=== PATIENT | female | born 1995 | race Caucasian/White ===

== ENCOUNTER 2018-03-14 20:31 | Emergency (ER) | payer MEDICAID, OTHER ==
[~2018-03-14] VITALS: Ht 167.6 cm; Wt 55.0 kg
[~2018-03-14 20:31] MED LIST: Z.0.BCPILL PO
[2018-03-14 20:42] VITALS: BP 167/89; PULSE 110; RESP 12; TEMP 98.6; O2SAT 98
--- NOTE | 2018-03-14 20:54 | PD ---
HPI Chief Complaint: Suicide Ideation/Attempt Time Seen by Provider: 20:51 Travel History International Travel<30 days: No Contact w/Intl Traveler<30days: No Traveled to known affect area: No History of Present Illness HPI This is a 22-year-old female who presents under a Vasques act initiated by [place] [employer]. According to the administrative services officer patient recently had medication changes of unknown specificity. Since then she has been having emotional outbursts and has been having complaints of depression and occasional suicidal thoughts. Onset and duration unknown. Symptoms are moderate, aggravated by medication changes. Reportedly she has a history of autism. She says that she follows with a psychiatrist but she does not recall the name of the psychiatrist. In regards to medical complaints, she says that she is currently menstruating and she feels anxious and scared. She is otherwise without complaint at this time. PFSH Past Medical History ADHD: Yes Diminished Hearing: No Neurologic: Yes (MENTALLY DELAYED) Immunizations Current: Yes ?: Not Past Surgical History Hysterectomy: No Tympanostomy Tube: Yes Social History Alcohol Use: No Tobacco Use: No Substance Use: No Allergies-Medications (Allergen,Severity, Reaction): Coded Allergies: No Known Allergies (Unverified Adverse Reaction, Unknown, 03/15/18) Reported Meds & Prescriptions Reported Meds & Active Scripts Active Reported Zoloft (Sertraline HCl) 25 Mg Tab 25 Mg PO DAILY Risperdal (Risperidone) 0.5 Mg Tab 0.5 Mg PO HS Risperdal (Risperidone) 0.25 Mg Tab 0.25 Mg PO AM, 1 PM Guanfacine (Guanfacine HCl) 1 Mg Tab 1 Mg PO DAILY Do not crush, chew or divide tablet. Take with a meal. Control Pills (Miscellaneous Medication) Tab 1 Tab PO DAILY Review of Systems Except as stated in HPI: all other systems reviewed are Neg Physical Exam Narrative GENERAL: Well-developed well-nourished female in no acute distress SKIN: Warm and dry. HEAD: Atraumatic. Normocephalic. EYES: Pupils equal and round. No scleral icterus. No injection or drainage. ENT: No nasal bleeding or discharge. Mucous membranes pink and moist. NECK: Trachea midline. No JVD. CARDIOVASCULAR: Regular rate and rhythm. No murmur appreciated. RESPIRATORY: No accessory muscle use. Clear to auscultation. Breath sounds equal bilaterally. GASTROINTESTINAL: Abdomen soft, non-tender, nondistended. Hepatic and splenic margins not palpable. MUSCULOSKELETAL: No obvious deformities. NEUROLOGICAL: Awake and alert. No obvious cranial nerve deficits. Motor grossly within normal limits. Normal speech. PSYCHIATRIC: Anxious, tearful. Data Data Last Documented VS Vital Signs Date Time Temp Pulse Resp B/P (MAP) Pulse Ox O2 Delivery O2 Flow Rate FiO2 03/15/18 19:54 03/15/18 18:05 99 20 96 Room Air 03/14/18 20:42 98.6 Orders Orders Complete Blood Count With Diff (03/14/18 20:48) Comprehensive Metabolic Panel (03/14/18 20:48) Ed Urine Pregnancytest Poc (03/14/18 20:48) Psych Screen (03/14/18 20:48) Drug Screen, Random Urine (03/14/18 20:48) Thyroid Stimulating Hormone (03/14/18 20:48) Thyroid Stimulating Hormone (03/14/18 20:48) Risperidone (Risperdal) (03/14/18 22:30) Diphenhydramine (Benadryl) (03/14/18 22:30) Diet Regular Basic (03/15/18 Breakfast) Diet Regular Basic (03/15/18 Lunch) Diet Regular Basic (03/15/18 Dinner) Labs Laboratory Tests Test 03/14/18 21:00 03/14/18 21:38 White Blood Count 10.2 TH/MM3 Red Blood Count 4.70 MIL/MM3 Hemoglobin 13.4 GM/DL Hematocrit 39.9 % Mean Corpuscular Volume 84.9 FL Mean Corpuscular Hemoglobin 28.6 PG Mean Corpuscular Hemoglobin Concent 33.6 % Red Cell Distribution Width 13.2 % Platelet Count 228 TH/MM3 Mean Platelet Volume 9.6 FL Neutrophils (%) (Auto) 58.5 % Lymphocytes (%) (Auto) 30.4 % Monocytes (%) (Auto) 8.4 % Eosinophils (%) (Auto) 2.1 % Basophils (%) (Auto) 0.6 % Neutrophils # (Auto) 6.0 TH/MM3 Lymphocytes # (Auto) 3.1 TH/MM3 Monocytes # (Auto) 0.9 TH/MM3 Eosinophils # (Auto) 0.2 TH/MM3 Basophils # (Auto) 0.1 TH/MM3 CBC Comment DIFF FINAL Differential Comment Blood Urea Nitrogen 11 MG/DL Creatinine 0.86 MG/DL Random Glucose 96 MG/DL Total Protein 7.4 GM/DL Albumin 3.7 GM/DL Calcium Level 9.1 MG/DL Alkaline Phosphatase 60 U/L Aspartate Amino Transf (AST/SGOT) 18 U/L Alanine Aminotransferase (ALT/SGPT) 22 U/L Total Bilirubin 0.3 MG/DL Sodium Level 139 MEQ/L Potassium Level 3.5 MEQ/L Chloride Level 106 MEQ/L Carbon Dioxide Level 21.2 MEQ/L Anion Gap 12 MEQ/L Estimat Glomerular Filtration Rate 83 ML/MIN Thyroid Stimulating Hormone 3rd Gen 1.720 uIU/ML Urine Opiates Screen NEG Urine Barbiturates Screen NEG Urine Amphetamines Screen NEG Urine Benzodiazepines Screen NEG Urine Cocaine Screen NEG Urine Cannabinoids Screen NEG MDM Medical Decision Making Medical Screen Exam Complete: Yes Emergency Medical Condition: Yes Medical Record Reviewed: Yes Differential Diagnosis Adverse medication effect, acute psychosis, adjustment reaction, major depressive disorder, intermittent explosive disorder, autism Narrative Course Mental health screening discussed with the patient. Psychiatric screen ordered. Medically cleared. 2000: This patient has been cleared by psychiatry. She has no medical issues that would warrant further hospitalization. She is stable for discharge. Diagnosis Primary Impression: Medical clearance for psychiatric admission Dakotah Melendez Mar 14, 2018 20:54
[2018-03-14 21:47] LABS: BASOPHIL # 0.1 TH/MM3 (0-0.2); BASOPHIL % 0.6 % (0.0-2.0); EOSINOPHIL # 0.2 TH/MM3 (0-0.4); EOSINOPHIL % 2.1 % (0.0-4.0); HEMATOCRIT 39.9 % (35.0-46.0); HEMOGLOBIN 13.4 GM/DL (11.6-15.3); LYMPH % 30.4 % (9.0-44.0); LYMPHOCYTE # 3.1 TH/MM3 (1.0-4.8); MEAN CELL VOLUME 84.9 FL (80.0-100.0); MEAN CORPUSCULAR HEMOGLOBIN 28.6 PG (27.0-34.0); MEAN CORPUSCULAR HGB CONC 33.6 % (32.0-36.0); MEAN PLATELET VOLUME 9.6 FL (7.0-11.0); MONO % 8.4 % (0.0-8.0); MONOCYTE # 0.9 TH/MM3 (0-0.9); NEUT % 58.5 % (16.0-70.0); PLATELET COUNT 228 TH/MM3 (150-450); RED CELL DISTRIBUTION WIDTH 13.2 % (11.6-17.2); WHITE BLOOD COUNT 10.2 TH/MM3 (4.0-11.0)
[2018-03-14 22:19] LABS: ALBUMIN 3.7 GM/DL (3.4-5.0); AST (GOT) 18 U/L (15-37); BICARBONATE 21.2 MEQ/L (21.0-32.0); BLOOD UREA NITROGEN 11 MG/DL (7-18); CALCIUM 9.1 MG/DL (8.5-10.1); CHLORIDE 106 MEQ/L (98-107); CREATININE 0.86 MG/DL (0.50-1.00); GLOMERULAR FILTRATION RATE 83 ML/MIN (>89); GLUCOSE,RANDOM 96 MG/DL (74-106); SODIUM (NA) 139 MEQ/L (136-145)
[2018-03-14 22:30] LABS: ALKALINE PHOSPHATASE 60 U/L (45-117); ALT (GPT) 22 U/L (10-53); TOTAL BILIRUBIN ADULT 0.3 MG/DL (0.2-1.0); TOTAL PROTEIN 7.4 GM/DL (6.4-8.2)
[2018-03-14] MEDS ORDERED: risperiDONE 0.5 MG TAB PO ONE (22:30)
[2018-03-14] MEDS ORDERED: diphenhydrAMINE HCL 50 MG CAP PO ONE (22:30)
[2018-03-15 06:03] VITALS: BP 98/53; PULSE 77; RESP 16; O2SAT 100
[2018-03-15] MEDS ORDERED: GUAN1TAB PO (07:50)
[2018-03-15] MEDS ORDERED: RISP0.5T25 PO (07:50)
[2018-03-15] MEDS ORDERED: RISP.25 PO (07:50)
[2018-03-15] MEDS ORDERED: ZOLO25TA PO (07:50)
[2018-03-15 13:10] VITALS: BP 125/83; PULSE 97; RESP 18; O2SAT 98
[2018-03-15 18:05] VITALS: BP 149/69; PULSE 99; RESP 20; O2SAT 96
--- NOTE | 2018-03-15 19:15 | PD ---
History of Present Illness Chief Complaint: Suicide Ideation/Attempt Time Seen by Provider: 19:00 Travel History International Travel<30 Days: No Contact w/Intl Traveler<30days: No Known affected area: No Legal Status Legal Status: Vasques Act Vasques Act Signed By: Rosa Castro Vasques Act Comment: 2017 @ 1950 History of Present Illness: History of Present Illness HPI This is a 22-year-old, single, unemployed female, living with her parents with diagnosis of intellectual disability, autism spectrum disorder, and major depressive disorder recurrent, who presents under a Vasques act initiated by [place] [employer]. According to the police affidavit patient recently had medication changes of unknown specificity. Since then she has been having emotional outbursts and has been having complaints of depression and occasional suicidal thoughts. Patient is not reported to have made any attempts at harming herself. Electronic medical record is reviewed. No previous contact with [facility] psychiatry Department. Current toxicology is negative for any substances of abuse. Patient was monitored here in J pod and presented no behavioral concerns and no suicidality. She was rather isolative to her room. Patient is seen. She is alert and oriented. She is calm, cooperative. She does express feeling anxious over being here. She states that time she has a hard time with feeling angry. She denies any suicidal or homicidal ideation, intent or plan. There is no evidence of any psychosis, no tom or hypomania. The patient is medication compliant. Telephone call to mother at [phone]. I have discussed with the mother the patient's behavior during the daytime here in J pod. I have also shared my concern regarding admitting her to an inpatient locked psychiatric unit where she may not benefit from such. The mother tells me that last the patient's Zoloft was decreased and she was started on risperidone 3 times a day. It was after the initiation of that medication that she began to have more outbursts. The patient has an appointment with her psychiatrist on . I have advised her to decrease the amount of risperidone that she takes at nighttime and to inform her outpatient psychiatrist. The mom agrees to pick her up from [facility] Past Medical History ADHD: Yes Diminished Hearing: No Neurologic: Yes (MENTALLY DELAYED) Immunizations Current: Yes ?: Not Past Surgical History Hysterectomy: No Tympanostomy Tube: Yes Psychiatric History Psychiatric History Hx Psychiatric Treatment: ADHD, DEVELOPMENTALY DELAYED, ASD patient is followed by Dr. Hewitt. No history of suicide attempt. No history of self-injurious behavior. Has an appointment next . History of Inpatient Treatment: No Guns or firearms in home: No Social History Patient is single, never , completed high school. Currently unemployed and lives with parents. Hx Alcohol Use: No Hx Tobacco Use: No Hx Substance Use: No Hx of Substance Use Treatment: No Family Psychiatric History Negative Allergies-Medications (Allergen,Severity, Reaction): Coded Allergies: No Known Allergies (Unverified Adverse Reaction, Unknown, 03/15/18) Reported Meds & Prescriptions Reported Meds & Active Scripts Active Reported Zoloft (Sertraline HCl) 25 Mg Tab 25 Mg PO DAILY Risperdal (Risperidone) 0.5 Mg Tab 0.5 Mg PO HS Risperdal (Risperidone) 0.25 Mg Tab 0.25 Mg PO AM, 1 PM Guanfacine (Guanfacine HCl) 1 Mg Tab 1 Mg PO DAILY Do not crush, chew or divide tablet. Take with a meal. Control Pills (Miscellaneous Medication) Tab 1 Tab PO DAILY Review of Systems Psychiatric: COMPLAINS OF: Anxiety Except as stated in HPI: all other systems reviewed are Neg Mental Status Examination Appearance: Disheveled Consciousness: Alert Orientation: x4 Motor Activity: Normal gait Speech: Slow, Other (Low tone) Language: Adequate Fund of Knowledge: Poor Attention and Concentration: Adequate Memory: Unremarkable (Not formally tested) Mood: Anxious Affect: Appropriate Thought Process & Associations: Intact, Logical Thought Content: Appropriate Hallucination Type: None Delusion Type: None Suicidal Ideation: No Suicidal Plan: No Suicidal Intention: No Homicidal Ideation: No Homicidal Plan: No Homicidal Intention: No Insight: Fair Judgment: Impulsive [facility] Medical Decision Making Medical Record Reviewed: Yes Assessment/Plan This is a 22-year-old, single, unemployed female, living with her parents with diagnosis of intellectual disability, autism spectrum disorder, and major depressive disorder recurrent, who presents under a Vasques act initiated by [place] [employer]. According to the police affidavit patient recently had medication changes of unknown specificity. Since then she has been having emotional outbursts and has been having complaints of depression and occasional suicidal thoughts. Patient is not reported to have made any attempts at harming herself. The patient was monitor and secure environment and presented no behavioral dysregulation, no emotional outbursts, no evidence of any aggressive or agitated behavior. There was no self injuries behavior. She denies suicidal or homicidal ideation. Did not appear to be internally stimulated. At this time after discussion with her mother who is her guardian the Vasques act as lifted. The mother has been informed that if there are any changes in her presentation to bring her back to the emergency department. She is also advised to contact outpatient psychiatrist and inform her of ED visit. BA is lifted. Psychiatrically clear for discharge from the ED. Mother will pick the patient. Follow-up on with Dr. hewitt Orders Orders Complete Blood Count With Diff (03/14/18 20:48) Comprehensive Metabolic Panel (03/14/18 20:48) Ed Urine Pregnancytest Poc (03/14/18 20:48) Psych Screen (03/14/18 20:48) Drug Screen, Random Urine (03/14/18 20:48) Thyroid Stimulating Hormone (03/14/18 20:48) Thyroid Stimulating Hormone (03/14/18 20:48) Risperidone (Risperdal) (03/14/18 22:30) Diphenhydramine (Benadryl) (03/14/18 22:30) Diet Regular Basic (03/15/18 Breakfast) Diet Regular Basic (03/15/18 Lunch) Diet Regular Basic (03/15/18 Dinner) Results Vital Signs Date Time Temp Pulse Resp B/P (MAP) Pulse Ox O2 Delivery O2 Flow Rate FiO2 03/15/18 06:03 77 16 98/53 (68) 100 Room Air 03/14/18 20:42 98.6 110 12 167/89 (115) 98 Laboratory Tests Test 03/14/18 21:00 03/14/18 21:38 White Blood Count 10.2 Red Blood Count 4.70 Hemoglobin 13.4 Hematocrit 39.9 Mean Corpuscular Volume 84.9 Mean Corpuscular Hemoglobin 28.6 Mean Corpuscular Hemoglobin Concent 33.6 Red Cell Distribution Width 13.2 Platelet Count 228 Mean Platelet Volume 9.6 Neutrophils (%) (Auto) 58.5 Lymphocytes (%) (Auto) 30.4 Monocytes (%) (Auto) 8.4 Eosinophils (%) (Auto) 2.1 Basophils (%) (Auto) 0.6 Neutrophils # (Auto) 6.0 Lymphocytes # (Auto) 3.1 Monocytes # (Auto) 0.9 Eosinophils # (Auto) 0.2 Basophils # (Auto) 0.1 CBC Comment DIFF FINAL Differential Comment Blood Urea Nitrogen 11 Creatinine 0.86 Random Glucose 96 Total Protein 7.4 Albumin 3.7 Calcium Level 9.1 Alkaline Phosphatase 60 Aspartate Amino Transf (AST/SGOT) 18 Alanine Aminotransferase (ALT/SGPT) 22 Total Bilirubin 0.3 Sodium Level 139 Potassium Level 3.5 Chloride Level 106 Carbon Dioxide Level 21.2 Anion Gap 12 Estimat Glomerular Filtration Rate 83 Thyroid Stimulating Hormone 3rd Gen 1.720 Urine Opiates Screen NEG Urine Barbiturates Screen NEG Urine Amphetamines Screen NEG Urine Benzodiazepines Screen NEG Urine Cocaine Screen NEG Urine Cannabinoids Screen NEG Diagnosis Primary Impression: Medical clearance for psychiatric admission Additional Impressions: Pervasive developmental disorder MDD (major depressive disorder) Psychiatrically Cleared: Yes Med/ Other Pt Specific Info: No Change to Meds Disposition: 01 DISCHARGE HOME Condition: Stable Problem Qualifiers Additional Impressions: MDD (major depressive disorder) Qualified Codes: F33.0 - Major depressive disorder, recurrent, mild Apple Espinoza [facility] Mar 15, 2018 19:15
[2018-03-15] MEDS ORDERED: risperiDONE 0.5 MG TAB PO ONE (20:15)
== END 2018-03-15 22:10 | disposition home or self-care (01) ==
LOC: NEDAMB 20:31 → NEPJ 03-15 22:10
DX: F33.0 Major depressive disorder, recurrent, mild (principal); Z79.899 Other long term (current) drug therapy
CPT/HCPCS: 80053; 80307; 84443; 84703; 85025; 99284; Q0163